=== PATIENT | male | born 1935 | race Caucasian/White ===

== ENCOUNTER → 2016-07-20 | Outpatient (CLI) | payer MEDICARE, BC, OTHER ==
[~2016-07-20] MED LIST: ASPIRIN 81MG TA81 MG PO; BACTRIM DS 8001 TAB PO; CENTRUM SILVER1 TAB PO; CRESTOR10 MG PO; EFFIENT10 MG PO; FISH OIL CONC1000 MG OT; GABAPENTIN300 MG PO; GLIPIZIDE 5MG TA5 MG PO; HYDROCODONE 7.51 TAB PO; KEFLEX500 M1 PO; LORTAB 5/500 501 TAB PO; LOSARTAN POTASS50 MG PO; NAPROXEN SODIU220 MG PO; PLAVIX75 MG PO; RANITIDINE HCL150 MG PO; SIMVASTATIN40 MG PO; SLO-NIACIN500 MG OR; TOPROL XL 50MG50 MG PO; VITAMIN C500 M1 PO; VITAMIN C500 M2 OR; ZANTAC 300300 MG PO; ZESTRIL40 M1 PO
== END ==
LOC: RAD 09:35
DX: M25.561 Pain in right knee (principal)

== ENCOUNTER → 2017-04-10 | Outpatient (CLI) | payer MEDICARE, BC, OTHER ==
--- NOTE | 2017-04-10 15:52 | RADIOLOGY REPORT PS360 ---
CT ABD PELVIS W/O CONTRAST CLINICAL INDICATION: LEFT FLANK PAIN,HEMATURIA ORDERING PHYSICIAN: Collins Man MD PATIENT AGE: 81 years COMPARISON: The 2007 TECHNIQUE: Axial images obtained with sagittal and coronal reformats. PROCEDURE: Oral Contrast: None IV Contrast: None . FINDINGS: Artifact is present from cardiac pacemaker device. The liver is unremarkable. There are at least 2 gallstones present. No biliary dilatation. Spleen, adrenal glands, and pancreas are unremarkable. 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 There is mild dilatation of the right iliac limb of the graft similar to the previous exam. There are nonobstructing bilateral renal calculi measuring up to 4 mm in the mid polar region of the right kidney and 4 mm in the upper pole of the left kidney. Is mild stranding in the perinephric renal fat bilaterally and there is a 13 mm exophytic isodensity projects in the lower pole left kidney consistent with a small left renal cyst. There is minimal stranding of the left periureteral fat. A 3 mm calcific density is present in the posterior central aspect of the urinary bladder and may represent recently passed stone. No intestinal obstruction or free air. No evidence of appendicitis or diverticulitis. There is sigmoid diverticulosis. There is mild dilatation of the left internal iliac artery at 2 cm previously measuring 1.6 cm. No acute retroperitoneal hemorrhage evident. No acute bony anomalies. IMPRESSION: 1. Bilateral nephrolithiasis. 2. Mild stranding in the left perinephric and periureteral fat which may be related to recently passed stone. A 3 mm stone is present in the urinary bladder. 3. Cholelithiasis
== END ==
LOC: RAD 15:10
DX: R10.32 Left lower quadrant pain (principal); R31.9 Hematuria, unspecified